=== PATIENT | male | born 1965 | race Two or more races ===

== ENCOUNTER 2024-03-07 10:37 | Emergency (ER) | payer MEDICAID ==
[~2024-03-07] VITALS: Ht 160 cm; Wt 80.3 kg
[2024-03-07 11:24] VITALS: BP 137/97; PULSE 74; RESP 17; TEMP 98.8; O2SAT 97
[2024-03-07] MEDS ORDERED: IBUP-1456 PO (11:32)
[2024-03-07] MEDS ORDERED: CIPR1SUS8 OT (11:32)
[2024-03-07] MEDS ORDERED: AUG875T PO (11:32)
[2024-03-07] MEDS: cefTRIAXone SOD 1,000 MG VL IM ONE (11:49)
[2024-03-07] MEDS: TETANUS-DIPTH-ACEL PERTUSSIS 0.5ML SYR Tdap IM ONE (11:51)
== END 2024-03-07 11:57 | disposition home or self-care (01) ==
LOC: ER 10:37
DX: H92.01 Otalgia, right ear (principal); Z79.1 Long term (current) use of non-steroidal anti-inflammatories (NSAID)
CPT/HCPCS: 90471; 90715; 96372; 99284; J0696